=== PATIENT | female | born 1980 | race Caucasian/White ===

== ENCOUNTER 2024-08-24 19:25 | Inpatient (IN) | payer MEDICAID ==
[~2024-08-24] VITALS: Ht 152.4 cm; Wt 92.4 kg
[2024-08-24 22:05] VITALS: PULSE 73; TEMP 97.7
[2024-08-24] MEDS ORDERED: magnesium hydroxide 30ml (MOM) UD suspension PO PRN (22:05)
[2024-08-24] MEDS ORDERED: mag hydrox/Alum hydrox/simeth 30ml oral suspension PO PRN (22:05)
[2024-08-24] MEDS ORDERED: BUDE10.22 INH (22:58)
[2024-08-24] MEDS ORDERED: SERT100T PO (22:58)
[2024-08-24] MEDS ORDERED: ALBU8HFA INH (22:58)
[2024-08-24] MEDS ORDERED: OMEP20TA23 PO (22:58)
[2024-08-24] MEDS ORDERED: OXCA300T16 PO (22:58)
[2024-08-24] MEDS ORDERED: MONT-40 PO (22:58)
[2024-08-24] MEDS ORDERED: LORA10TA7 PO (22:58)
[2024-08-24] MEDS: hydrOXYzine 25 MG tablet PO ONE (23:35)
[2024-08-25 07:00] VITALS: RESP 14; O2SAT 97
[2024-08-25 07:30] VITALS: BP 133/79; PULSE 74; RESP 14; TEMP 98.1; O2SAT 97
[2024-08-25] MEDS: pantoprazole 40mg Tablet.DR PO SCH (07:31)
[2024-08-25] MEDS: sertraline 50mg tablet PO SCH (07:31)
[2024-08-25] MEDS: montelukast 10mg tablet PO SCH (07:31)
[2024-08-25] MEDS: loratadine 10mg tablet PO SCH (07:31)
[2024-08-25] MEDS: oxcarbazepine 150mg tablet PO SCH (07:32)
[2024-08-25] MEDS: Budesonide/Formoterol Fumarate (Symbicort) 80-4.5 Mcg Inhaler IH SCH (07:33)
[2024-08-25] MEDS: acetaminophen 325mg tablet PO PRN ×2 (08:09→19:45)
[2024-08-25 08:24] VITALS: PULSE 82; RESP 20; O2SAT 97
[2024-08-25] MEDS: albuterol 2.5 MG/3 ML nebule NEB PRN (08:24)
[2024-08-25 08:29] VITALS: PULSE 86; RESP 20
[2024-08-25] MEDS: pneumococcal 23-VAL P-sac vacc 25 mcg/0.5ml vial IMVAC ONE (11:05)
[2024-08-25] MEDS: FLU VACC TS2024-25(6MOS UP)/PF 45 MCG/0.5 ML SYRINGE IMVAC ONE (11:06)
[2024-08-25 19:29] VITALS: BP 164/108; PULSE 95; RESP 18; TEMP 98.5; O2SAT 96
[2024-08-25] MEDS: cloNIDine 0.1 mg tablet PO PRN (19:44)
[2024-08-25] MEDS: hydrOXYzine 25 MG tablet PO PRN (19:45)
[2024-08-26] VITALS (9 sets, daily range): BP systolic 115–141; BP diastolic 84–112; PULSE 73–96; RESP 14–25; TEMP 98–98.1; O2SAT 94–97
[2024-08-26 11:04] LABS: ALANINE AMINOTRANSFERASE 16 U/L (12-78); ALBUMIN 3.3 G/DL (3.4-5.0); ALKALINE PHOSPHATASE 95 IU/L (46-116); ANION GAP 6 (8-16); ASPARTATE AMINO TRANSFERASE 11 U/L (10-37); BILIRUBIN,TOTAL 0.3 MG/DL (0.1-1.0); BLOOD UREA NITROGEN 16 MG/DL (7-18); BUN/CREATININE RATIO 18.8 (10.0-20.0); CALCIUM 8.8 MG/DL (8.5-10.1); CHLORIDE 104 MMOL/L (99-107); CHOL/HDL RATIO 5.7 (0.00-4.99); CHOLESTEROL 272 MG/DL (0-200); CREATININE 0.85 MG/DL (0.40-0.90); GLUCOSE 119 MG/DL (70-104); HDL CHOLESTEROL 48 MG/DL (35-60); LDL CHOLESTEROL 188 MG/DL (50-100); POTASSIUM 3.9 MMOL/L (3.5-5.1); SODIUM 137 MMOL/L (135-145); TOTAL PROTEIN 6.7 G/DL (6.4-8.2); TRIGLYCERIDES 145 MG/DL (20-135); eCRCL 61 ML/MIN; eGFR 73 ML/MIN
[2024-08-26 11:56] LABS: BASOPHILS % (AUTO) 0.4 % (0-1); EOSINOPHILS # (AUTO) 0.1 X10'3 (0-0.9); EOSINOPHILS % (AUTO) 0.6 % (0-6); HEMATOCRIT 38.5 % (35.0-45.0); HEMOGLOBIN 12.7 g/dl (12.0-16.0); LYMPHOCYTES # (AUTO) 1.5 X10'3 (1.1-4.8); LYMPHOCYTES % (AUTO) 14.5 % (21-51); MEAN CORPUSCULAR HEMOGLOBIN 29.6 PG (27.0-31.0); MEAN CORPUSCULAR HGB CONC 33.1 g/dL (33.0-36.5); MEAN CORPUSCULAR VOLUME 89.2 FL (78-98); MONOCYTES # (AUTO) 0.6 X10'3 (0-0.9); NEUTROPHILS # (AUTO) 8.3 X10'3 (1.8-7.7); NEUTROPHILS % (AUTO) 78.5 % (42-75); PLATELET COUNT 326 X10'3 (140-440); RED BLOOD COUNT 4.31 X10'6 (4.20-5.60); RED CELL DISTRIBUTION WIDTH 14.6 % (11.5-14.5); WHITE BLOOD COUNT 10.6 X10'3 (4.5-11.0)
[2024-08-27] VITALS (9 sets, daily range): BP systolic 124–139; BP diastolic 92–93; PULSE 75–110; RESP 16–20; TEMP 96–98.6; O2SAT 96–98
[2024-08-28] VITALS (9 sets, daily range): BP systolic 124–144; BP diastolic 82–95; PULSE 82–108; RESP 15–19; TEMP 96.3–98; O2SAT 96–98
[2024-08-28] MEDS: BUPROPION HCL 150MG XL 24 HR 150 MG TAB PO SCH (08:54)
[2024-08-28] MEDS: guaiFENesin 200 MG/10 ML oral syrup UD cup PO PRN (11:05)
[2024-08-28] MEDS: lisinopril 10 MG tablet PO SCH (11:05)
[2024-08-29] MEDS: atorvastatin 20mg tablet PO SCH (07:55)
[2024-08-29] MEDS: albuterol 2.5 MG/3 ML nebule NEB PRN (08:43)
[2024-08-29 08:44] VITALS: PULSE 97; RESP 18; O2SAT 96
[2024-08-29 08:49] VITALS: PULSE 101; RESP 18
[2024-08-29 09:57] VITALS: BP 139/89; PULSE 80; RESP 12; TEMP 97.1; O2SAT 96
[2024-08-29] MEDS: azithromycin 250mg tablet PO SCH (15:27)
[2024-08-29 17:38] VITALS: PULSE 95; PULSE 96; RESP 18; RESP 20; O2SAT 99
[2024-08-29 19:00] VITALS: RESP 20; O2SAT 99
[2024-08-29 20:00] VITALS: BP 136/92; PULSE 94; RESP 20; TEMP 97.1; O2SAT 99
[2024-08-30] VITALS (7 sets, daily range): BP systolic 114–124; BP diastolic 79–86; PULSE 72–106; RESP 14–20; TEMP 97.5–98.2; O2SAT 95–98
[2024-08-30] MEDS: LORazepam 1 MG tablet PO ONE (21:11)
[2024-08-31] VITALS (10 sets, daily range): BP systolic 140–155; BP diastolic 79–96; PULSE 83–111; RESP 16–18; TEMP 97.1–97.5; O2SAT 96–98
[2024-08-31] MEDS ORDERED: ipratropium/albuterol 3ml nebule NEB SCH (12:20)
[2024-08-31] MEDS: ipratropium/albuterol 3ml nebule NEB SCH ×2 (14:03→20:25)
[2024-08-31] MEDS: budesonide 0.5mg/2ml UD nebule IH SCH (15:00)
[2024-08-31] MEDS ORDERED: budesonide 0.5mg/2ml UD nebule IH SCH (20:00)
[2024-09-01] VITALS (8 sets, daily range): BP systolic 124–128; BP diastolic 55–90; PULSE 86–112; RESP 14–18; TEMP 97.3–97.6; O2SAT 97–98
[2024-09-01] MEDS: hydrOXYzine 25 MG tablet PO ONE (20:24)
[2024-09-02] VITALS (7 sets, daily range): BP systolic 121–129; BP diastolic 87–92; PULSE 88–104; RESP 14–18; TEMP 97.4–98.6; O2SAT 97–99
[2024-09-03 07:00] VITALS: BP 116/85; PULSE 84; RESP 12; TEMP 97.7; O2SAT 97
[2024-09-03] MEDS ORDERED: BUDE0.5A3 IH (07:40)
[2024-09-03] MEDS ORDERED: LISI10TA27 PO (07:40)
[2024-09-03] MEDS ORDERED: PANT40TA54 PO (07:40)
[2024-09-03] MEDS ORDERED: LORA10TA7 PO (07:40)
[2024-09-03] MEDS ORDERED: OXCA300T16 PO (07:40)
[2024-09-03] MEDS ORDERED: MONT-40 PO (07:40)
[2024-09-03] MEDS ORDERED: ATOR20TA66 PO (07:40)
[2024-09-03] MEDS ORDERED: CLON0.1T2 PO (07:40)
[2024-09-03] MEDS ORDERED: BUPR-94 PO (07:40)
[2024-09-03] MEDS ORDERED: ALBU8HFA INH (07:40)
[2024-09-03] MEDS ORDERED: HYDR-3686 PO (07:40)
[2024-09-03] MEDS ORDERED: BUDE10.22 INH (07:40)
[2024-09-03] MEDS ORDERED: SERT100T PO (07:40)
[2024-09-03 08:00] VITALS: BP_SYST 116
[2024-09-03 09:46] VITALS: PULSE 105; RESP 20; O2SAT 99
[2024-09-03 09:53] VITALS: PULSE 111; RESP 18
== END 2024-09-03 13:38 | disposition home or self-care (01) | DRG 751 ==
LOC: ADULT MH 21:39 → UNDOADMIN 21:39 → ADULT MH 08-25 00:05
PROVIDERS: ADMIT Psychiatry & Neurology Psychiatry; ATTEND Psychiatry & Neurology Psychiatry
PROC: GZHZZZZ Group Psychotherapy (ICD-10-PCS; principal; 2024-08-25)
PROC: GZ51ZZZ Individual Psychotherapy, Behavioral (ICD-10-PCS; 2024-08-25)
DX: F33.9 Major depressive disorder, recurrent, unspecified (principal); R45.851 Suicidal ideations; Z20.822 Contact with and (suspected) exposure to COVID-19; I10 Essential (primary) hypertension; F43.10 Post-traumatic stress disorder, unspecified; E66.01 Morbid (severe) obesity due to excess calories; F41.9 Anxiety disorder, unspecified; F90.9 Attention-deficit hyperactivity disorder, unspecified type; J45.909 Unspecified asthma, uncomplicated; E78.5 Hyperlipidemia, unspecified; Z83.3 Family history of diabetes mellitus; Z59.00 Homelessness unspecified; Z91.012 Allergy to eggs; Z91.013 Allergy to seafood; Z91.018 Allergy to other foods; Z98.891 History of uterine scar from previous surgery; Z68.39 Body mass index [BMI] 39.0-39.9, adult; F12.90 Cannabis use, unspecified, uncomplicated
CPT/HCPCS: 36415; 71046; 80053; 80061; 83036; 85025; 87081; 87811; 90686; 90732; 94640; 94760; A6250; Q0177

== ENCOUNTER 2025-01-23 08:54 | Emergency (ER) | payer MEDICAID ==
[~2025-01-23] VITALS: Ht 152.4 cm; Wt 92.7 kg
[~2025-01-23 08:54] MED LIST: ALBU8HFA INH; ATOR20TA66 PO; BUDE0.5A3 IH; BUDE10.22 INH; BUPR-94 PO; CLON0.1T2 PO; HYDR-3686 PO; LISI10TA27 PO; LORA10TA7 PO; MONT-40 PO; OXCA300T16 PO; PANT40TA54 PO; SERT100T PO
[2025-01-23] MEDS ORDERED: AMOX-580 PO (09:22)
[2025-01-23] MEDS ORDERED: AMOX-117 PO (09:22)
[2025-01-23] MEDS ORDERED: HYDR-3965 PO (09:22)
[2025-01-23] MEDS: TETanus/Pertussis (Acell)/Diphther VAC/PF (Tdap-Adult) 0.5ml syringe IMVAC ONE (09:47)
[2025-01-23] MEDS: amox tr/potassium clavulanate 875/125mg TAB PO ONE (09:47)
[2025-01-23 10:07] VITALS: BP 120/78; PULSE 86; RESP 16; TEMP 97.9; O2SAT 98
== END 2025-01-23 10:11 | disposition home or self-care (01) ==
LOC: ER 08:54
DX: S81.052A Open bite, left knee, initial encounter (principal); E78.5 Hyperlipidemia, unspecified; F31.9 Bipolar disorder, unspecified; I10 Essential (primary) hypertension; Z88.8 Allergy status to other drugs, medicaments and biological substances; W55.01XA Bitten by cat, initial encounter; Y93.89 Activity, other specified; Y92.89 Other specified places as the place of occurrence of the external cause; Y99.8 Other external cause status
CPT/HCPCS: 90471; 90715; 99283